=== PATIENT | male | born 1965 | race Caucasian/White ===

== ENCOUNTER 2020-07-04 02:11 | Emergency (ER) | payer OTHER ==
[2020-07-04 04:57] LABS: CORONAVIRUS 2019 SARS-COV-2 POSITIVE (NEGATIVE); INFLUENZA A NAA NEGATIVE (NEGATIVE)
== END 2020-07-04 05:10 | disposition home or self-care (01) ==
LOC: FER 02:11
PROVIDERS: Emergency Medicine
DX: U07.1 COVID-19 (principal); E11.9 Type 2 diabetes mellitus without complications; I10 Essential (primary) hypertension
CPT/HCPCS: 99283; U0002

== ENCOUNTER 2020-07-07 18:21 | Emergency (ER) | payer OTHER | END 2020-07-07 21:20 | disposition other institution (70) | LOC: FER 18:21 | DX: S42.441A Displaced fracture (avulsion) of medial epicondyle of right humerus, initial encounter for closed fracture (principal); E11.9 Type 2 diabetes mellitus without complications; I10 Essential (primary) hypertension; Z79.4 Long term (current) use of insulin; Z98.890 Other specified postprocedural states; Z86.16 Personal history of COVID-19; W01.10XA Fall on same level from slipping, tripping and stumbling with subsequent striking against unspecified object, initial encounter; Y92.89 Other specified places as the place of occurrence of the external cause; Y99.0 Civilian activity done for income or pay | CPT/HCPCS: 73060; 73070; 73090; 96372; J1170 ==

== ENCOUNTER 2021-03-25 00:55 | Emergency (ER) | payer OTHER ==
[2021-03-25 02:31] LABS: EOSINOPHIL 2.8 % (0-5); HCT 39.5 % (42.0-52.0); HGB 13.2 g/dl (13.2-18.0); MCH 30.3 pg (25.0-31.0); MCHC 33.4 g/dL (32.0-36.0); MCV 90.8 fL (78.0-100.0); MONOCYTE 9.4 % (0-12); MPV 9.8 fL (6.0-9.5); NEUTROPHIL 46.3 % (41-80); NRBC 0; PLT 250 K/uL (150-400); RBC 4.35 M/uL (4.70-6.00); RDW 12.2 % (11.5-14.0); WBC 5.8 K/uL (4.0-10.5)
[2021-03-25 03:11] LABS: ALBUMIN 3.4 g/dL (3.4-5.0); BILIRUBIN - TOTAL 0.3 mg/dL (0.2-1.0); BUN/CREAT RATIO (CALC) 22.9 RATIO; CREATININE 0.7 mg/dL (0.67-1.17); GLOBULIN (CALCULATION) 3.1 g/dL; POTASSIUM 3.9 mmol/L (3.5-5.1); TOTAL PROTEIN 6.5 g/dL (6.4-8.2)
[2021-03-25 04:01] LABS: BILIRUBIN NEGATIVE (NEGATIVE); BLOOD NEGATIVE Ery/uL (NEGATIVE); CLARITY CLEAR (CLEAR); COLOR YELLOW (YELLOW); GLUCOSE (U) 2+ mg/dL (NORMAL); LEUKOCYTES NEGATIVE Leu/uL (NEGATIVE); NITRITE NEGATIVE (NEGATIVE); PROTEIN NEGATIVE (NEGATIVE); UROBILINOGEN 0.2 mg/dL (0.2-1.0); pH 6.5 (5.0-9.0)
[2021-03-25] MEDS ORDERED: GAS RELIEF80 MG PO (06:08)
[2021-03-25] MEDS ORDERED: LEVSIN-SL0.125 M1 SL (06:08)
[2021-03-25] MEDS ORDERED: MIRALAX 238GM238 GM PO (06:08)
[2021-03-25] MEDS ORDERED: ONDANSETRON ODT4 MG SL (06:08)
== END 2021-03-25 06:27 | disposition home or self-care (01) ==
LOC: FER 00:55
PROVIDERS: Emergency Medicine Emergency Medical Services
DX: K59.00 Constipation, unspecified (principal); E11.9 Type 2 diabetes mellitus without complications; I10 Essential (primary) hypertension; Z79.4 Long term (current) use of insulin
CPT/HCPCS: 36415; 80053; 81003; 83605; 83690; 84145; 85025; 87339; J2405; Q9967

== ENCOUNTER → 2021-04-25 | Day surgery (SDC) | payer OTHER ==
[~2021-04-25] VITALS: Ht 165.1 cm; Wt 65.8 kg
[~2021-04-25] MED LIST: ATORVASTATIN CA40 MG PO; BASAGLAR K100 UNIT/1 SC; DESYREL50 MG PO; GABAPENTIN400 MG PO; GAS RELIEF80 MG PO; LEVSIN-SL0.125 M1 SL; METFORMIN HCL1000 MG PO; MIRALAX 238GM238 GM PO; NANO 2ND GEN P1 EACH SC; OMEPRAZOLE40 MG PO; ONDANSETRON ODT4 MG SL; QUINAPRIL-HCTZ1 EAC2 PO
[2021-04-25 07:45] LABS: ALBUMIN 3.7 g/dL (3.4-5.0); BILIRUBIN - TOTAL 0.5 mg/dL (0.2-1.0); BUN/CREAT RATIO (CALC) 15.3 RATIO; CREATININE 0.72 mg/dL (0.67-1.17); GLOBULIN (CALCULATION) 3.8 g/dL; TOTAL PROTEIN 7.5 g/dL (6.4-8.2)
[2021-04-26 07:07] LABS: HBSAG SCREEN Negative (Negative); HEP A AB, IGM Negative (Negative); HEP B CORE AB, IGM Negative (Negative); HEP C VIRUS AB <0.1 (0.0-0.9)
== END | disposition home or self-care (01) ==
LOC: FAS 06:49
PROVIDERS: Surgery
DX: K31.A0 Gastric intestinal metaplasia, unspecified (principal); K63.5 Polyp of colon; R14.0 Abdominal distension (gaseous); R93.3 Abnormal findings on diagnostic imaging of other parts of digestive tract; K59.00 Constipation, unspecified; K76.0 Fatty (change of) liver, not elsewhere classified; K21.9 Gastro-esophageal reflux disease without esophagitis; E11.40 Type 2 diabetes mellitus with diabetic neuropathy, unspecified; I10 Essential (primary) hypertension; E78.5 Hyperlipidemia, unspecified; G47.00 Insomnia, unspecified; Z79.899 Other long term (current) drug therapy; Z79.4 Long term (current) use of insulin
CPT/HCPCS: 36415; 80053; 80074; 82150; 83690; J2250; J2704; J7120

== ENCOUNTER → 2021-06-12 | Day surgery (SDC) | payer OTHER ==
[~2021-06-12] VITALS: Ht 165.1 cm; Wt 63.5 kg
--- NOTE | 2021-06-12 08:43 | NUR ---
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
== END | disposition home or self-care (01) ==
LOC: FAS 07:11
DX: K31.7 Polyp of stomach and duodenum (principal); K31.A0 Gastric intestinal metaplasia, unspecified; K29.50 Unspecified chronic gastritis without bleeding; K31.9 Disease of stomach and duodenum, unspecified; Z79.4 Long term (current) use of insulin; Z79.84 Long term (current) use of oral hypoglycemic drugs
CPT/HCPCS: J2704; J7120